=== PATIENT | male | born 1980 | race Caucasian/White ===

== ENCOUNTER 2017-03-10 06:26 | Emergency (ER) | payer MEDICAID, OTHER ==
[~2017-03-10] VITALS: Ht 182.9 cm; Wt 99.5 kg
[2017-03-10 06:30] VITALS: Ht 182.9 cm; Wt 99.5 kg
[2017-03-10] MEDS ORDERED: KETOROLAC 60 MG INJ IM STA (06:56)
[2017-03-10] MEDS ORDERED: DIAZEPAM 5 MG/ML SYG IM ONE (07:00)
--- NOTE | 2017-03-10 07:24 | ERD ---
ER Documentation Chief Complaint Date/Time DATE: 03/10/17 TIME: 07:23 Chief Complaint RT LEG CRAMPS HPI 36-year-old male otherwise healthy comes in with a right lateral leg pain that started yesterday. 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 He has not had any swelling, fevers or chills. Denies trauma. Patient tried taking Tylenol prior to arrival. ROS All systems reviewed and are negative except as per history of present illness. Allergies Allergies: Coded Allergies: No Known Allergy (Unverified , 03/10/17) PMhx/Soc Medical and Surgical Hx: pt denies Medical Hx, pt denies Surgical Hx Hx Alcohol Use: Yes (occassionally) Hx Substance Use: Yes (daily marijuana) Hx Tobacco Use: No Smoking Status: Never smoker Physical Exam Vitals Vital Signs Date Time Temp Pulse Resp B/P Pulse Ox O2 Delivery O2 Flow Rate FiO2 03/10/17 06:30 97.9 87 18 132/82 98 Physical Exam General: Well-developed, well-nourished. The patient appears in no acute distress. HEENT: Head is normocephalic, atraumatic. No scleral icterus. Neck: Supple. Nontender. Lungs: Clear to auscultation. Normal air movement. Heart: Regular rate and rhythm. S1 and S2 are normal. No murmurs, gallops, or rubs. Abdomen: Soft, nontender, nondistended. Bowel sounds are normoactive. Extremities: Soft tissue tenderness over the right lateral thigh, there is no swelling, no rashes. No tenderness over the joint of the right hip, he has full range of motion with right hip flexion and extension. Negative Homans sign. Neurologic: Alert and oriented 3. No focal deficits. Skin: Normal turgor. No rash or lesions. Results 24 hrs Current Medications Medications (Trade) Dose Ordered Sig/Ruel Route PRN Reason Start Time Stop Time Status Last Admin Dose Admin Ketorolac Tromethamine (Toradol) 60 mg ONCE STAT IM 03/10/17 06:56 03/10/17 06:57 DC 03/10/17 07:09 Diazepam (Valium) 5 mg ONCE ONCE IM 03/10/17 07:00 03/10/17 07:01 DC 03/10/17 07:09 Procedures/MDM ED course: He was given Toradol 30 mg IM, as well as Valium 10 mg IM. Medical decision making: This 36-year-old male comes in with right leg pain, consistent with muscle spasm. Other differentials include iliotibial band tendinitis, hip strain, lumbar strain, fracture, rhabdomyolysis, DVT, arterial occlusion, cellulitis among others. His examination is consistent with a muscle spasm, treated with Valium. He stated that he is feeling much better at this time. After patient's reassessment, it appears that patient has eloped from the emergency department. Departure Diagnosis: Primary Impression: Pain of right leg Condition: DEEPA Banuelos PA-C Mar 10, 2017 07:24
== END 2017-03-10 08:10 | disposition left against medical advice (07) ==
LOC: FTE 06:26
DX: M79.604 Pain in right leg (principal)
CPT/HCPCS: J1885; J3360; 96372